=== PATIENT | female | born 1985 | race Two or more races ===

== ENCOUNTER 2023-12-12 21:24 | Emergency (ER) | payer BC, MEDICAID ==
[~2023-12-12] VITALS: Ht 167.6 cm; Wt 119.0 kg
[2023-12-12 21:40] LABS: Basophils # (auto) 0.1 10 ^3/uL (0-0.2); Basophils % (auto) 1.4 % (0.0-2.0); Eosinophils # (auto) 0.3 10 ^3/uL (0-0.8); Eosinophils % (auto) 3.5 % (0.0-7.0); Hemoglobin 13.4 g/dL (12.2-16.2); Lymphocytes # (auto) 2.9 10 ^3/uL (0.4-5.4); Lymphocytes % (auto) 32.7 % (10.0-50.0); Mean Corpuscular Hemoglobin 29.6 pg (28.0-32.0); Mean Corpuscular Hgb Conc. 33.4 g/dL (32.0-36.0); Mean Corpuscular Volume 88.7 fL (80.0-100.0); Monocytes # (auto) 0.6 10 ^3/uL (0-1.3); Monocytes % (auto) 6.4 % (0.0-12.0); Neutrophils # (auto) 4.9 10 ^3/uL (1.6-8.6); Nucleated Red Blood Cells % 0.1 %; Platelet Count (auto) 254 10^3/uL (140-450); Red Blood Cells 4.51 10^6/uL (4.0-5.20); Red Cell Distribution Width 14.8 % (11.8-14.3); White Blood Cell 8.8 10^3/uL (4.4-10.8)
[2023-12-12 21:56] LABS: Chloride 107 mmol/L (98-107); Sodium 141 mmol/L (136-145)
[2023-12-12 21:57] LABS: Anion Gap 8 (5-15); Carbon Dioxide 26 mmol/L (20-31)
[2023-12-12 21:58] LABS: Calcium 9.6 mg/dL (8.7-10.4)
[2023-12-12 22:02] LABS: Blood Urea Nitrogen 15 mg/dL (9-23); Glucose 84 mg/dL (74-106)
[2023-12-12 22:03] LABS: Urine Bacteria None Seen /hpf (None Seen)
[2023-12-12 22:16] LABS: Urine Blood TRACE /uL (Negative); Urine Clarity Clear (Clear); Urine Color Light-Yellow (Yellow); Urine Mucus FEW (None Seen); Urine Protein, UAD Negative (Negative); Urine Specific Gravity 1.022 (1.001-1.035); Urine Urobilinogen Normal (Negative); Urine WBC 3 /hpf (0 - 5); Urine pH 5.5 (5.0-9.0)
[2023-12-13 00:10] VITALS: BP 123/82; PULSE 80; RESP 17; TEMP 98.1; O2SAT 98
== END 2023-12-13 00:11 | disposition home or self-care (01) ==
LOC: ER 21:24 → EEVIPCON 21:24 → ER 12-13 00:11
DX: R00.8 Other abnormalities of heart beat (principal); Z98.890 Other specified postprocedural states
CPT/HCPCS: 36415; 80048; 81001; 81025; 84443; 84484; 85025; 93005

== ENCOUNTER → 2024-02-17 | Outpatient (CLI) | payer BC ==
[2024-02-17 16:04] LABS: Basophils # (auto) 0.1 10 ^3/uL (0-0.2); Basophils % (auto) 1.2 % (0.0-2.0); Eosinophils # (auto) 0.3 10 ^3/uL (0-0.8); Eosinophils % (auto) 3.8 % (0.0-7.0); Hemoglobin 13.7 g/dL (12.2-16.2); Mean Corpuscular Hemoglobin 29.8 pg (28.0-32.0); Mean Corpuscular Hgb Conc. 33.4 g/dL (32.0-36.0); Mean Corpuscular Volume 89.2 fL (80.0-100.0); Monocytes # (auto) 0.4 10 ^3/uL (0-1.3); Monocytes % (auto) 6.4 % (0.0-12.0); Neutrophils # (auto) 4.3 10 ^3/uL (1.6-8.6); Neutrophils % (auto) 60.6 % (37.0-80.0); Nucleated Red Blood Cells % 0.1 %; Platelet Count (auto) 226 10^3/uL (140-450); Red Cell Distribution Width 14.7 % (11.8-14.3); Urine Bacteria None Seen /hpf (None Seen); Urine Blood TRACE /uL (Negative); Urine Clarity Clear (Clear); Urine Color Light-Yellow (Yellow); Urine Mucus FEW (None Seen); Urine Protein, UAD Negative (Negative); Urine Specific Gravity 1.022 (1.001-1.035); Urine Squamous Epithelial Cell FEW /hpf (<5); Urine Urobilinogen Normal (Negative); Urine WBC <1 /hpf (0 - 5); Urine pH 5.5 (5.0-9.0)
[2024-02-17 16:11] LABS: Alkaline Phosphatase 61 U/L (46-116); Anion Gap 5 (5-15); BUN/Creatinine Ratio 10.3 (10.0-20.0); Calcium 9.8 mg/dL (8.7-10.4); Carbon Dioxide 27 mmol/L (20-31); Glucose 80 mg/dL (74-106); LDL Cholesterol 85 mg/dL (< 100); Potassium 4.1 mmol/L (3.5-5.1); Sodium 139 mmol/L (136-145); Triglycerides 76 mg/dL (< 150)
[2024-02-17 16:12] LABS: Bilirubin, Total 0.7 mg/dL (0.2-1.0); Cholesterol 133 mg/dL (< 200); HDL Cholesterol 46 mg/dL (40-59); Total Protein 7.2 g/dL (5.7-8.2)
[2024-02-17 16:21] LABS: Alanine Aminotransferase 9 U/L (7-40); Aspartate Aminotransferase 13 U/L (13-40); Blood Urea Nitrogen 8 mg/dL (9-23); Chloride 107 mmol/L (98-107)
== END | disposition home or self-care (01) ==
LOC: LAB 14:52
PROVIDERS: ATTEND Nurse Practitioner Family
DX: E61.2 Magnesium deficiency (principal); E79.0 Hyperuricemia without signs of inflammatory arthritis and tophaceous disease; D51.9 Vitamin B12 deficiency anemia, unspecified; E55.9 Vitamin D deficiency, unspecified; R68.89 Other general symptoms and signs; R82.90 Unspecified abnormal findings in urine; R73.09 Other abnormal glucose; R94.6 Abnormal results of thyroid function studies
CPT/HCPCS: 36415; 80053; 80061; 81001; 82306; 82746; 83036; 84443; 85025; 87086